=== PATIENT | female | born 1970 | race African-American/Black ===

== ENCOUNTER → 2023-05-25 | Outpatient (CLI) | payer MEDICAID ==
[2023-05-25 15:33] LABS: Basophils # (auto) 0 10 ^3/uL (0-0.2); Basophils % (auto) 0.5 % (0.0-2.0); Eosinophils # (auto) 0.1 10 ^3/uL (0-0.8); Eosinophils % (auto) 1.4 % (0.0-7.0); Hematocrit 40.9 % (36.0-46.0); Hemoglobin 13.5 g/dL (12.2-16.2); Lymphocytes # (auto) 4.2 10 ^3/uL (0.4-5.4); Lymphocytes % (auto) 42.2 % (10.0-50.0); Mean Corpuscular Volume 78.9 fL (80.0-100.0); Monocytes # (auto) 0.6 10 ^3/uL (0-1.3); Monocytes % (auto) 6.3 % (0.0-12.0); Neutrophils # (auto) 4.9 10 ^3/uL (1.6-8.6); Neutrophils % (auto) 49.6 % (37.0-80.0); Nucleated Red Blood Cells % 0.1 %; Red Blood Cells 5.19 10^6/uL (4.0-5.20); Red Cell Distribution Width 15.1 % (11.8-14.3); White Blood Cell 9.9 10^3/uL (4.4-10.8)
[2023-05-25 15:41] LABS: Alanine Aminotransferase 16 U/L (7-40); Albumin 4.4 g/dL (3.2-4.8); Alkaline Phosphatase 122 U/L (46-116); Anion Gap 7 (5-15); Aspartate Aminotransferase 17 U/L (13-40); BUN/Creatinine Ratio 8.6 (10.0-20.0); Bilirubin, Total 0.2 mg/dL (0.2-1.0); Blood Urea Nitrogen 8 mg/dL (9-23); Calcium 9.4 mg/dL (8.5-10.1); Carbon Dioxide 26 mmol/L (20-30); Chloride 107 mmol/L (98-107); Cholesterol 156 mg/dL (< 200); Glucose 83 mg/dL (74-106); HDL Cholesterol 35 mg/dL (40-59); LDL Cholesterol 104 mg/dL (< 100); Potassium 3.8 mmol/L (3.5-5.1); Sodium 140 mmol/L (136-145); Total Protein 6.9 g/dL (5.7-8.2); Triglycerides 164 mg/dL (< 150)
[2023-05-26 07:06] LABS: RPR Non Reactive (Non Reactive)
== END | disposition home or self-care (01) ==
LOC: LAB 15:02
PROVIDERS: ATTEND Student in an Organized Health Care Education/Training Program
DX: Z00.01 Encounter for general adult medical examination with abnormal findings (principal); Z12.11 Encounter for screening for malignant neoplasm of colon; E66.01 Morbid (severe) obesity due to excess calories; Z11.3 Encounter for screening for infections with a predominantly sexual mode of transmission
CPT/HCPCS: 36415; 80053; 80061; 82306; 83036; 84443; 85025; 86592

== ENCOUNTER 2024-05-24 19:19 | Emergency (ER) | payer MEDICAID ==
[~2024-05-24] VITALS: Ht 167.6 cm; Wt 82.0 kg
[2024-05-24 19:19] VITALS: BP 129/86; PULSE 63; RESP 18; O2SAT 99
== END 2024-05-24 20:24 | disposition left against medical advice (07) ==
LOC: EDBD 19:19 → EDUNIT# 19:19 → ER 19:19
DX: R20.2 Paresthesia of skin (principal); F41.9 Anxiety disorder, unspecified; Z53.21 Procedure and treatment not carried out due to patient leaving prior to being seen by health care provider

== ENCOUNTER → 2024-08-03 | Outpatient (CLI) | payer MEDICAID ==
[2024-08-03 07:48] LABS: Basophils # (auto) 0 10 ^3/uL (0-0.2); Hemoglobin 13.8 g/dL (12.2-16.2); Neutrophils # (auto) 4.2 10 ^3/uL (1.6-8.6); Nucleated Red Blood Cells % 0.1 %
[2024-08-03 07:50] LABS: Basophils % (auto) 0.3 % (0.0-2.0); Eosinophils # (auto) 0.2 10 ^3/uL (0-0.8); Eosinophils % (auto) 1.9 % (0.0-7.0); Hematocrit 41.4 % (36.0-46.0); Lymphocytes # (auto) 3.2 10 ^3/uL (0.4-5.4); Lymphocytes % (auto) 39.4 % (10.0-50.0); Mean Corpuscular Hemoglobin 26.4 pg (28.0-32.0); Mean Corpuscular Hgb Conc. 33.4 g/dL (32.0-36.0); Monocytes # (auto) 0.5 10 ^3/uL (0-1.3); Monocytes % (auto) 6.5 % (0.0-12.0); Neutrophils % (auto) 51.9 % (37.0-80.0); Platelet Count (auto) 233 10^3/uL (140-450); Red Blood Cells 5.23 10^6/uL (4.0-5.20); Red Cell Distribution Width 14.7 % (11.8-14.3); White Blood Cell 8.2 10^3/uL (4.4-10.8)
[2024-08-03 08:02] LABS: Alanine Aminotransferase 15 U/L (7-40); Albumin 4.3 g/dL (3.2-4.8); Anion Gap 8 (5-15); Aspartate Aminotransferase 14 U/L (13-40); BUN/Creatinine Ratio 16.3 (10.0-20.0); Blood Urea Nitrogen 16 mg/dL (9-23); Calcium 9.5 mg/dL (8.7-10.4); Carbon Dioxide 24 mmol/L (20-31); Potassium 3.8 mmol/L (3.5-5.1); Sodium 143 mmol/L (136-145)
[2024-08-03 08:03] LABS: Alkaline Phosphatase 169 U/L (46-116); Chloride 111 mmol/L (98-107); Cholesterol 167 mg/dL (< 200); Glucose 113 mg/dL (74-106); HDL Cholesterol 35 mg/dL (40-59); LDL Cholesterol 118 mg/dL (< 100); Triglycerides 198 mg/dL (< 150)
[2024-08-03 08:04] LABS: Bilirubin, Total < 0.2 mg/dL (0.2-1.0)
[2024-08-03 10:46] LABS: Hepatitis B Core Total AB Negative (Negative)
[2024-08-03 14:04] LABS: Hepatitis A Total Antibody Positive (Negative); Hepatitis B Surface Antibody Negative (Negative); Hepatitis B Surface Antigen Negative (Negative); Hepatitis C Antibody Negative (Negative)
== END | disposition home or self-care (01) ==
LOC: LAB 06:44
PROVIDERS: ATTEND Nurse Practitioner Family
DX: Z11.3 Encounter for screening for infections with a predominantly sexual mode of transmission (principal); Z12.11 Encounter for screening for malignant neoplasm of colon; E78.5 Hyperlipidemia, unspecified; D50.9 Iron deficiency anemia, unspecified; Z00.01 Encounter for general adult medical examination with abnormal findings
CPT/HCPCS: 36415; 80053; 80061; 83036; 85025; 86703; 86704; 86706; 86708; 86780; 86803; 87340

== ENCOUNTER 2024-12-17 20:49 | Emergency (ER) | payer MEDICAID, OTHER ==
[~2024-12-17] VITALS: Ht 167.6 cm; Wt 77.3 kg
[2024-12-17] MEDS ORDERED: CYCL-837 PO (23:29)
[2024-12-17] MEDS ORDERED: ACET500T58 PO (23:29)
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
[2024-12-17] MEDS: HYDROcodone-ACET 5/325MG TAB PO ONE (23:54)
[2024-12-17] MEDS: ONDANSETRON ODT 4 MG TAB PO ONE (23:54)
--- NOTE | 2024-12-17 23:59 | DVH ---
CT OF THE CERVICAL SPINE WITHOUT CONTRAST HISTORY: neck pain COMPARISON: None TECHNIQUE: Helical images through the cervical spine were obtained without contrast. Sagittal and cor onal reformats were obtained. One or more of the following radiation dose reduction techniques were u sed for this examination: automated exposure control, adjustment of the mA and/or kV according to pat ient size, use of iterative reconstruction technique. Dose: CTDIvol: 23.36 mGy, DLP: 566.83 mGy.cm FINDINGS: There is no acute displaced fracture. There is reversal of the cervical lordosis. There are degener ative changes of the cervical spine characterized by endplate osteophytosis and intervertebral disc s pace narrowing. A disc osteophyte complex at C6-7 effaces the thecal sac. Degenerative uncovertebra l and facet hypertrophy contribute to multilevel neural foraminal narrowing. The paraspinal soft tis sues are unremarkable. IMPRESSION: 1. No acute displaced fracture. 2. Degenerative changes of the cervical spine as detailed.
--- NOTE | 2024-12-18 00:01 | DVH ---
History: right hip pain Comparison Study: None Technique: Multidetector spiral CT of the pelvis was performed from iliac crests to pubic symphysis. 100 cc of intravenous contrast was administered during this examination. Portal venous imaging was obtained. Axial, coronal and sagittal multiplanar reformats were performed by the technologist on a separate workstation. Radiation Dose : CT Dose: CTDI volume is 27.9 mGy. Dose-length product is 853.73 mGy*cm Findings: Visualized bowel: Small bowel and colon are normal in caliber and distribution. The appendix is not visualized; however, no secondary findings of acute appendicitis identified. Ascites: Absent Lymphadenopathy: No pelvic or mesenteric lymphadenopathy. Pelvis Wall and Mesentery: Unremarkable. Vasculature: The visualized abdominal aorta is normal in size and caliber. Abdominal and pelvic vess els demonstrate normal enhancement. Pelvic Organs: Unremarkable Musculoskeletal: No aggressive focal bony lesions, acute fractures or dislocation. Bladder: Unremarkable IMPRESSION: 1. No acute pelvic finding.
--- NOTE | 2024-12-18 00:04 | DVH ---
EXAM: CT LS SPINE WO CONTRAST INDICATION: lumbar back pain TECHNIQUE: Axial images of the lumbar spine have been obtained along with coronal and sagittal reform atted images. CT scans at this facility use dose modulation, iterative reconstruction, and/or weight based dosing when appropriate to reduce radiation dose to as low as reasonably achievable. COMPARISON: None Dose: CTDIvol: 35 mGy, DLP: 1110.56 mGy.cm FINDINGS: No acute displaced fracture. Intervertebral disc heights are well-maintained. There are minimal end plate degenerative changes. There is mild facet arthropathy within the lower lumbar spine. The avril ryder soft tissues are unremarkable. LEVEL BY LEVEL DISCUSSION BELOW: T12-L1: Unremarkable. L1-L2: Unremarkable. L2-L3: Unremarkable. L3-L4: Unremarkable. L4-L5: A mild disc protrusion effaces the thecal sac without significant spinal canal or neural trae inal stenosis. There is mild facet arthropathy. L5-S1: Mild facet arthropathy without significant spinal canal or neural foraminal stenosis. IMPRESSION: 1. No acute displaced fracture.
[2024-12-18 00:27] VITALS: BP 110/70; PULSE 80; RESP 18; TEMP 98.4; O2SAT 96
== END 2024-12-18 00:29 | disposition home or self-care (01) ==
LOC: ER 20:55
DX: S16.1XXA Strain of muscle, fascia and tendon at neck level, initial encounter (principal); S39.012A Strain of muscle, fascia and tendon of lower back, initial encounter; S70.01XA Contusion of right hip, initial encounter; F17.210 Nicotine dependence, cigarettes, uncomplicated; Z87.442 Personal history of urinary calculi; Z90.49 Acquired absence of other specified parts of digestive tract; V89.2XXA Person injured in unspecified motor-vehicle accident, traffic, initial encounter; Y93.I9 Activity, other involving external motion; Y92.488 Other paved roadways as the place of occurrence of the external cause; Y99.8 Other external cause status
CPT/HCPCS: 72125; 72131; 72192; 99284; Q0162

== ENCOUNTER 2025-03-11 11:03 | Outpatient (CLI) | payer MEDICAID ==
[~2025-03-11 11:03] MED LIST: ACET500T58 PO; CYCL-837 PO
[2025-03-11 11:51] LABS: Hematocrit 42.6 % (36.0-46.0); Hemoglobin 14.0 g/dL (12.2-16.2); Mean Corpuscular Hemoglobin 26.5 pg (28.0-32.0); Mean Corpuscular Volume 80.4 fL (80.0-100.0); Nucleated Red Blood Cells % 0.5 %
[2025-03-11 12:16] LABS: Alanine Aminotransferase 19 U/L (7-40); Albumin 4.3 g/dL (3.2-4.8); Anion Gap 8 (5-15); BUN/Creatinine Ratio 10.7 (10.0-20.0); Blood Urea Nitrogen 11 mg/dL (9-23); Calcium 9.6 mg/dL (8.7-10.4); Carbon Dioxide 29 mmol/L (20-31); Chloride 106 mmol/L (98-107); Cholesterol 174 mg/dL (< 200); Glucose 89 mg/dL (74-106); HDL Cholesterol 47 mg/dL (40-59); Potassium 4.1 mmol/L (3.5-5.1); Sodium 143 mmol/L (136-145); Total Protein 7.4 g/dL (5.7-8.2); Triglycerides 81 mg/dL (< 150)
[2025-03-11 12:17] LABS: Bilirubin, Total 0.4 mg/dL (0.2-1.0)
[2025-03-11 12:18] LABS: Alkaline Phosphatase 136 U/L (46-116)
[2025-03-11 12:34] LABS: Hepatitis B Surface Antigen Negative (Negative)
[2025-03-11 12:41] LABS: Urine Protein, UAD Negative (Negative)
[2025-03-11 12:59] LABS: Hepatitis C Antibody Negative (Negative)
[2025-03-13 03:07] LABS: Chlamydia Trachomatis, NAA Negative (Negative); Neisseria gonorrhoeae, NAA Negative (Negative)
== END 2025-03-11 17:00 | disposition home or self-care (01) ==
LOC: LAB 11:03
PROVIDERS: ATTEND Nurse Practitioner Family
DX: E78.5 Hyperlipidemia, unspecified (principal); E55.9 Vitamin D deficiency, unspecified; R73.03 Prediabetes; Z11.3 Encounter for screening for infections with a predominantly sexual mode of transmission
CPT/HCPCS: 36415; 80053; 80061; 80074; 81001; 82306; 83036; 84443; 85025; 86703; 86780